=== PATIENT | male | born 1950 | race Hispanic/Latino ===

== ENCOUNTER 2017-12-25 01:44 | Emergency (ER) | payer OTHER, SELFPAY ==
[~2017-12-25 01:44] MED LIST: AUGMENTIN PO; FINASTERIDE PO; INSLAN SQ; PHEN-776 PO; RAPAFLO PO
[2017-12-25] MEDS ORDERED: DiphenhydrAMINE HCL 50 MG/ML VIAL ONE (02:14)
[2017-12-25] MEDS ORDERED: DIAZEPAM 5 MG TABLET ONE (02:15)
[2017-12-25 02:16] LABS: APPEARANCE,URINE Turbid (CLEAR); BILIRUBIN,URINE Negative (NEGATIVE); COLOR,URINE Yellow (YELLOW); GLUCOSE, URINE (UA) >=1000 mg/dL (NEGATIVE); KETONES,URINE Negative (NEGATIVE); LEUKOCYTE ESTERASE ,URINE Large (NEGATIVE); NITRATE,URINE Negative (NEGATIVE); OCCULT BLOOD,URINE Small (NEGATIVE); PH,URINE 5.5 (5.0-8.0); PROTEIN,URINE Negative (NEGATIVE); UROBILINOGEN,URINE 0.2 mg/dL (0.2-1.0)
[2017-12-25 02:25] LABS: BASOPHILS % (AUTO) 0.3 % (0.0-5.0); EOSINOPHILS % (AUTO) 0.9 % (0.0-8.0); LYMPHOCYTES % (AUTO) 11.6 % (21.0-51.0); MEAN CORPUSCULAR HEMOGLOBIN 29.5 pg (27.0-33.0); MEAN CORPUSCULAR HGB CONC 33.7 g/dL (32.0-36.0); MEAN CORPUSCULAR VOLUME 87.4 fL (79-99); MONOCYTES % (AUTO) 10.4 % (3.0-13.0); NEUTROPHILS % (AUTO) 76.8 % (40.0-77.0); PLATELET COUNT (AUTO) 181 K/uL (130-400); RED BLOOD CELL COUNT(AUTO) 4.24 MIL/uL (4.50-6.20); RED CELL DISTRIBUTION WIDTH 13.7 % (11.0-15.5); WHITE BLOOD COUNT (AUTO) 8.7 K/uL (4.8-10.8)
[2017-12-25 02:39] LABS: BACTERIA,URINE Many /HPF (None Seen); MUCUS,URINE Rare LPF (None Seen); RBC,URINE 0-1 /HPF (0-1); SQUAMOUS EPITHELIAL CELL,UR Rare /HPF (0-2); WBC,URINE TNTC /HPF (0-1); YEAST,URINE BUDDING Moderate /HPF (None Seen)
[2017-12-25 02:40] LABS: POTASSIUM 4.3 mmol/L (3.5-5.1)
[2017-12-25 02:45] LABS: ALBUMIN 3.3 g/dL (3.5-5.0); BILIRUBIN,TOTAL 0.3 mg/dL (0.2-1.0); TOTAL PROTEIN, SERUM 8.5 g/dL (6.0-8.3)
[2017-12-25] MEDS ORDERED: CEFTRIAXONE SODIUM 1 GM ONE (02:54)
[2017-12-25 02:55] LABS: AMPHET/METH SCREEN,URINE NEGATIVE (NEGATIVE); BARBITURATE SCREEN, URINE NEGATIVE (NEGATIVE); BENZODIAZEPINES SCREEN,URINE NEGATIVE (NEGATIVE); CANNABINOID SCREEN,URINE NEGATIVE (NEGATIVE); COCAINE SCREEN,URINE NEGATIVE (NEGATIVE); OPIATE SCREEN,URINE NEGATIVE (NEGATIVE); PHENCYCLIDINE SCREEN,URINE NEGATIVE (NEGATIVE)
[2017-12-25] MEDS ORDERED: HALOPERIDOL LACTATE 5 MG/ML VIAL ONE (03:03)
== END 2017-12-25 06:16 | disposition home or self-care (01) ==
LOC: EDH 01:44
DX: F41.9 Anxiety disorder, unspecified (principal); N39.0 Urinary tract infection, site not specified; E11.9 Type 2 diabetes mellitus without complications
CPT/HCPCS: 36415; 80053; 80305; 81001; 82948; 84484; 85025; 87088; 87186; 93005; 96374; 96375; 99285; J0696; J1200; J1630

== ENCOUNTER 2017-12-27 13:23 | Inpatient (IN) | payer OTHER ==
[~2017-12-27] VITALS: Ht 172.7 cm; Wt 73.6 kg
[2017-12-27 13:52] LABS: APPEARANCE,URINE Turbid (CLEAR); BILIRUBIN,URINE Negative (NEGATIVE); COLOR,URINE Yellow (YELLOW); GLUCOSE, URINE (UA) 500 mg/dL (NEGATIVE); KETONES,URINE Negative (NEGATIVE); LEUKOCYTE ESTERASE ,URINE Large (NEGATIVE); NITRATE,URINE Negative (NEGATIVE); OCCULT BLOOD,URINE Moderate (NEGATIVE); PROTEIN,URINE POS 1+ (NEGATIVE); UROBILINOGEN,URINE 0.2 mg/dL (0.2-1.0)
[2017-12-27 14:04] LABS: BACTERIA,URINE Many /HPF (None Seen); SQUAMOUS EPITHELIAL CELL,UR Few /HPF (0-2); WBC,URINE TNTC /HPF (0-1); YEAST,URINE BUDDING Few /HPF (None Seen)
[2017-12-27] MEDS ORDERED: MEROPENEM 1 GM VIAL ONE (14:05)
[2017-12-27 14:13] LABS: BASOPHILS % (AUTO) 0.9 % (0.0-5.0); EOSINOPHILS % (AUTO) 1.1 % (0.0-8.0); HEMATOCRIT 33.1 % (42-54); LYMPHOCYTES % (AUTO) 20.5 % (21.0-51.0); MEAN CORPUSCULAR HEMOGLOBIN 29.7 pg (27.0-33.0); MEAN CORPUSCULAR HGB CONC 33.9 g/dL (32.0-36.0); MEAN CORPUSCULAR VOLUME 87.8 fL (79-99); MONOCYTES % (AUTO) 6.6 % (3.0-13.0); NEUTROPHILS % (AUTO) 70.9 % (40.0-77.0); PLATELET COUNT (AUTO) 191 K/uL (130-400); RED BLOOD CELL COUNT(AUTO) 3.77 MIL/uL (4.50-6.20); RED CELL DISTRIBUTION WIDTH 13.7 % (11.0-15.5); WHITE BLOOD COUNT (AUTO) 6.9 K/uL (4.8-10.8)
[2017-12-27 14:21] LABS: POTASSIUM 4.3 mmol/L (3.5-5.1)
[2017-12-27 14:26] LABS: ALBUMIN 3.1 g/dL (3.5-5.0); BILIRUBIN,TOTAL 0.2 mg/dL (0.2-1.0); TOTAL PROTEIN, SERUM 7.3 g/dL (6.0-8.3)
[2017-12-27] MEDS ORDERED: ENOXAPARIN SODIUM 40 MG/0.4 ML SYRINGE SQ SCH (20:15)
[2017-12-27] MEDS ORDERED: ACETAMINOPHEN 325 MG TAB PO PRN (20:15)
[2017-12-27] MEDS ORDERED: FAMOTIDINE 20MG TAB 20 MG TAB PO SCH (20:15)
[2017-12-27] MEDS ORDERED: HYDRALAZINE HCL 20 MG/ML VIAL IM PRN (20:15)
[2017-12-27] MEDS ORDERED: GLUCAGON 1MG KIT 1 MG ML IM PRN (20:15)
[2017-12-27] MEDS ORDERED: DEXTROSE 50%-WATER 50 ML DISP.SYRIN IV PRN (20:15)
[2017-12-27] MEDS ORDERED: FAMOTIDINE 20MG TAB 20 MG TAB ONE (20:52)
[2017-12-27] MEDS ORDERED: ENOXAPARIN SODIUM 40 MG/0.4 ML SYRINGE SQ ONE (20:53)
[2017-12-27] MEDS: INSULIN HUMULIN R 100 UNIT/ML 3ML SQ SCH (21:00)
[2017-12-27] MEDS ORDERED: INSULIN HUMULIN R 100 UNIT/ML 3ML ONE (21:10)
[2017-12-27] MEDS ORDERED: SODIUM CHLORIDE 0.9% 1000ML 1,000 ML IV ONE (21:21)
[2017-12-27] MEDS: MEROPENEM 1 GM VIAL IVP SCH (22:00)
[2017-12-27 23:41] VITALS: BP 136/81
[2017-12-28] MEDS ORDERED: CHOL400C9 PO (00:39)
[2017-12-28] MEDS ORDERED: DOCU100C33 PO (00:39)
[2017-12-28] MEDS ORDERED: SIMV40TA59 PO (00:39)
[2017-12-28] MEDS ORDERED: METF500T6 PO (00:39)
[2017-12-28] MEDS ORDERED: INSLAN SQ ×2 (00:39)
[2017-12-28] MEDS ORDERED: TAMS0.4C32 PO (00:39)
[2017-12-28] MEDS ORDERED: LISI10TA7 PO (00:39)
[2017-12-28] MEDS ORDERED: SODIUM CHLORIDE 0.9% 1000ML 1,000 ML IV ONE (01:58)
[2017-12-28] MEDS ORDERED: ONDANSETRON HCL MDV 20ML 2 MG/ML VIAL IVP PRN (02:15)
[2017-12-28] MEDS ORDERED: POTASSIUM CHLORIDE 20 MEQ ERTAB PO PRN (02:15)
[2017-12-28] MEDS ORDERED: GLUCAGON 1MG KIT 1 MG ML IM PRN (02:15)
[2017-12-28] MEDS ORDERED: POTASSIUM CHLORIDE 20MEQ/100ML 100 ML IV PRN (02:15)
[2017-12-28] MEDS ORDERED: SODIUM CHLORIDE 0.9% 1000ML 1,000 ML IV SCH (02:15)
[2017-12-28] MEDS ORDERED: LORAZEPAM 0.5 MG TABLET PO PRN (02:15)
[2017-12-28] MEDS ORDERED: DEXTROSE 50%-WATER 50 ML DISP.SYRIN IV PRN (02:15)
[2017-12-28] MEDS ORDERED: POTASSIUM CHLORIDE 10% ELIXIR 20 MEQ/15 ML UDCUP PO PRN (02:15)
[2017-12-28] MEDS ORDERED: LIDOCAINE HCL-MPF 1% 2ML VIAL IJ PRN (02:15)
[2017-12-28] MEDS ORDERED: LORAZEPAM 0.5 MG TABLET ONE (02:18)
[2017-12-28 03:00] VITALS: BP 138/73
[2017-12-28] MEDS: MEROPENEM 1 GM VIAL IVP SCH ×3 (05:34→21:45)
[2017-12-28] MEDS: INSULIN HUMULIN R 100 UNIT/ML 3ML SQ SCH ×4 (05:34→21:40)
[2017-12-28 06:24] LABS: HEMATOCRIT 31.8 % (42-54); MEAN CORPUSCULAR HGB CONC 35.4 g/dL (32.0-36.0); MEAN CORPUSCULAR VOLUME 87.6 fL (79-99); PLATELET COUNT (AUTO) 190 K/uL (130-400); RED BLOOD CELL COUNT(AUTO) 3.63 MIL/uL (4.50-6.20); RED CELL DISTRIBUTION WIDTH 14.1 % (11.0-15.5); WHITE BLOOD COUNT (AUTO) 10.9 K/uL (4.8-10.8)
[2017-12-28 06:39] LABS: CREATININE 0.9 mg/dL (0.5-1.5); POTASSIUM 4.1 mmol/L (3.5-5.1)
[2017-12-28] MEDS: INSULIN GLARGINE 100 UNITS/ML 10 ML VIAL SQ SCH (07:30)
[2017-12-28 08:00] VITALS: BP 142/65
[2017-12-28] MEDS ORDERED: INSULIN GLARGINE 100 UNITS/ML 10 ML VIAL SQ SCH ×2 (09:00→21:00)
[2017-12-28] MEDS: **HM** VIT D3 400 UNITS PO SCH (09:00)
[2017-12-28] MEDS: DOCUSATE SODIUM 100 MG CAP PO SCH ×2 (09:11→21:32)
[2017-12-28] MEDS: METFORMIN HCL 500 MG TABLET PO SCH ×2 (09:12→19:34)
[2017-12-28] MEDS: LISINOPRIL 10 MG TABLET PO SCH (09:12)
[2017-12-28] MEDS: TAMSULOSIN HCL 0.4 MG CAP.ER.24H PO SCH (09:12)
[2017-12-28] MEDS: ENOXAPARIN SODIUM 40 MG/0.4 ML SYRINGE SQ SCH (09:13)
[2017-12-28 11:00] VITALS: BP 138/58
[2017-12-28 16:00] VITALS: BP 130/85
[2017-12-28 16:19] LABS: INR 1.09 (0.85-1.15); PROTHROMBIN TIME 11.4 SEC (9.6-11.6)
[2017-12-28 19:05] VITALS: BP 152/71
[2017-12-28] MEDS ORDERED: ATORVASTATIN CALCIUM 20 MG TABLET PO SCH (21:00)
[2017-12-28] MEDS ORDERED: ALPRAZOLAM 0.25 MG TABLET PO PRN (22:30)
[2017-12-28] MEDS ORDERED: ALPRAZOLAM 0.25 MG TABLET ONE (22:59)
[2017-12-29 00:05] VITALS: BP 154/83
[2017-12-29 04:10] VITALS: BP 158/95
[2017-12-29] MEDS: MEROPENEM 1 GM VIAL IVP SCH (05:29)
[2017-12-29] MEDS: INSULIN HUMULIN R 100 UNIT/ML 3ML SQ SCH ×2 (06:07→12:14)
[2017-12-29] MEDS: INSULIN GLARGINE 100 UNITS/ML 10 ML VIAL SQ SCH (06:14)
[2017-12-29 08:00] VITALS: BP 148/98
[2017-12-29] MEDS: TAMSULOSIN HCL 0.4 MG CAP.ER.24H PO SCH (08:27)
[2017-12-29] MEDS: METFORMIN HCL 500 MG TABLET PO SCH (08:27)
[2017-12-29] MEDS: LISINOPRIL 10 MG TABLET PO SCH (08:27)
[2017-12-29] MEDS: DOCUSATE SODIUM 100 MG CAP PO SCH (08:27)
[2017-12-29] MEDS: **HM** VIT D3 400 UNITS PO SCH (08:28)
[2017-12-29] MEDS: ENOXAPARIN SODIUM 40 MG/0.4 ML SYRINGE SQ SCH (08:28)
[2017-12-29 11:29] VITALS: BP 154/90
== END 2017-12-29 13:53 | disposition home or self-care (01) | DRG 690 ==
LOC: EDH 13:23 → EDHIP 16:50 → 3BH 22:03
PROVIDERS: ADMIT Family Medicine; ATTEND Family Medicine
PROC: 02HV33Z Insertion of Infusion Device into Superior Vena Cava, Percutaneous Approach (ICD-10-PCS; principal; 2017-12-29)
DX: N39.0 Urinary tract infection, site not specified (principal); B96.20 Unspecified Escherichia coli [E. coli] as the cause of diseases classified elsewhere; E11.9 Type 2 diabetes mellitus without complications; E78.5 Hyperlipidemia, unspecified; F41.1 Generalized anxiety disorder; I10 Essential (primary) hypertension; N40.0 Benign prostatic hyperplasia without lower urinary tract symptoms; Z16.24 Resistance to multiple antibiotics; Z83.3 Family history of diabetes mellitus; Z79.84 Long term (current) use of oral hypoglycemic drugs; Z28.21 Immunization not carried out because of patient refusal
CPT/HCPCS: 36415; 71045; 80048; 80053; 80305; 81001; 82948; 83605; 84484; 85025; 85027; 85610; 87040; 87088; 87186; 93005; 96374; 96375; A4218; C1894; J0696; J1200; J1630; J1650; J1815; J2185; J7030

== ENCOUNTER → 2018-06-15 | Outpatient (CLI) | payer OTHER ==
[~2018-06-15] MED LIST changes: -AUGMENTIN PO; +CHOL400C9 PO; +DOCU100C33 PO; -FINASTERIDE PO; +LISI10TA7 PO; +METF-444 PO; -PHEN-776 PO; -RAPAFLO PO; +SIMV40TA59 PO; +TAMS0.4C32 PO
== END | disposition home or self-care (01) ==
LOC: RAH 11:00
PROVIDERS: ATTEND Urology
DX: N13.39 Other hydronephrosis (principal)
CPT/HCPCS: 76770

== ENCOUNTER 2022-04-18 18:27 | Emergency (ER) | payer OTHER ==
[~2022-04-18] VITALS: Ht 172.7 cm; Wt 68.0 kg
[~2022-04-18 18:27] MED LIST changes: +LISI10TA24 PO; -LISI10TA7 PO
[2022-04-18 18:57] LABS: BASOPHILS % (AUTO) 0.4 % (0.0-5.0); EOSINOPHILS % (AUTO) 1.6 % (0.0-8.0); HEMATOCRIT 36.7 % (42-54); LYMPHOCYTES % (AUTO) 20.2 % (21.0-51.0); MEAN CORPUSCULAR HEMOGLOBIN 31.9 pg (27.0-33.0); MEAN CORPUSCULAR HGB CONC 35.4 g/dL (32.0-36.0); MEAN CORPUSCULAR VOLUME 90.2 fL (79-99); MONOCYTES % (AUTO) 7.2 % (3.0-13.0); NEUTROPHILS % (AUTO) 70.2 % (40.0-77.0); PLATELET COUNT (AUTO) 178 K/uL (130-400); RED BLOOD CELL COUNT(AUTO) 4.07 MIL/uL (4.50-6.20); RED CELL DISTRIBUTION WIDTH 12.4 % (11.0-15.5); WHITE BLOOD COUNT (AUTO) 10.5 K/uL (4.8-10.8)
[2022-04-18 19:08] LABS: CREATININE 1.3 mg/dL (0.5-1.5); POTASSIUM 4.5 mmol/L (3.5-5.1)
[2022-04-18 19:15] LABS: ALBUMIN 3.9 g/dL (3.5-5.0); TOTAL PROTEIN, SERUM 7.5 g/dL (6.0-8.3)
[2022-04-18 19:33] LABS: BILIRUBIN,URINE NEGATIVE (NEGATIVE); COLOR,URINE YELLOW (YELLOW); GLUCOSE, URINE (UA) >=1000 mg/dL (NEGATIVE); KETONES,URINE 15 mg/dL (NEGATIVE); LEUKOCYTE ESTERASE ,URINE MODERATE (NEGATIVE); NITRATE,URINE POSITIVE (NEGATIVE); OCCULT BLOOD,URINE SMALL (NEGATIVE); PH,URINE 5.5 (5.0-8.0); PROTEIN,URINE 100 mg/dL (NEGATIVE); UROBILINOGEN,URINE 0.2 mg/dL (0.2-1.0)
[2022-04-18 19:35] LABS: APPEARANCE,URINE CLOUDY (CLEAR)
[2022-04-18 19:43] LABS: BACTERIA,URINE Many /HPF (None Seen); RBC,URINE None Seen /HPF (0-1); SQUAMOUS EPITHELIAL CELL,UR 0-2 /HPF (0-2); WBC,URINE 51-100 /HPF (0-1)
[2022-04-18] MEDS: 0.9%NACL 1000ML 1,000 ML IV ONE (20:01)
[2022-04-18] MEDS ORDERED: CEFD300C3 PO (20:02)
[2022-04-18] MEDS: CEFTRIAXONE 1G VIAL IVP ONE (20:08)
[2022-04-18 20:21] VITALS: BP 149/78
== END 2022-04-18 20:40 | disposition home or self-care (01) ==
LOC: EDH 18:27
DX: N39.0 Urinary tract infection, site not specified (principal); E86.0 Dehydration; R42 Dizziness and giddiness; Z20.822 Contact with and (suspected) exposure to COVID-19; E11.9 Type 2 diabetes mellitus without complications
CPT/HCPCS: 99285; 96374; 71045; 87635; 84484; 80053; 83690; 85025; 87077; 87088; 87186; 81001; 36415; 93005; C9803; J7030; J0696

== ENCOUNTER 2023-03-27 09:41 | Inpatient (IN) | payer OTHER ==
[~2023-03-27] VITALS: Ht 167.6 cm; Wt 68.9 kg
[~2023-03-27 09:41] MED LIST changes: +CEFD300C3 PO
[2023-03-27] MEDS ORDERED: 0.9%NACL 1000ML 1,914 ML IV ONE (10:00)
[2023-03-27 10:30] LABS: BASOPHILS % (AUTO) 0.1 % (0.0-5.0); HEMATOCRIT 38.4 % (42-54); LYMPHOCYTES % (AUTO) 2.7 % (21.0-51.0); MEAN CORPUSCULAR HEMOGLOBIN 33.3 pg (27.0-33.0); MEAN CORPUSCULAR HGB CONC 35.4 g/dL (32.0-36.0); MEAN CORPUSCULAR VOLUME 93.9 fL (79-99); MONOCYTES % (AUTO) 7.8 % (3.0-13.0); NEUTROPHILS % (AUTO) 87.9 % (40.0-77.0); PLATELET COUNT (AUTO) 168 K/uL (130-400); RED BLOOD CELL COUNT(AUTO) 4.09 MIL/uL (4.50-6.20); WHITE BLOOD COUNT (AUTO) 22.7 K/uL (4.8-10.8)
[2023-03-27 10:31] LABS: APPEARANCE,URINE TURBID (CLEAR); BILIRUBIN,URINE NEGATIVE (NEGATIVE); COLOR,URINE LIGHT-ORANGE (YELLOW); GLUCOSE, URINE (UA) 500 mg/dL (NEGATIVE); KETONES,URINE NEGATIVE (NEGATIVE); LEUKOCYTE ESTERASE ,URINE 500 Leu/uL (NEGATIVE); NITRATE,URINE NEGATIVE (NEGATIVE); OCCULT BLOOD,URINE MODERATE (NEGATIVE); PH,URINE 5.5 (5.0-8.0); PROTEIN,URINE 100 mg/dL (NEGATIVE); UROBILINOGEN,URINE 0.2 mg/dL (0.2-1.0)
[2023-03-27 10:35] LABS: BACTERIA,URINE RARE /HPF (None Seen); MUCUS,URINE RARE LPF (None Seen); RBC,URINE 26-50 /HPF (0-1); SQUAMOUS EPITHELIAL CELL,UR MANY /HPF (0-2); WBC,URINE TNTC /HPF (0-1); YEAST,URINE BUDDING MANY /HPF (None Seen)
[2023-03-27 10:45] LABS: POTASSIUM 4.1 mmol/L (3.5-5.1)
[2023-03-27 10:49] LABS: ALBUMIN 2.8 g/dL (3.5-5.0); TOTAL PROTEIN, SERUM 6.9 g/dL (6.0-8.3)
[2023-03-27 10:52] LABS: B-TYPE NATRIURETIC PEPTIDE 72 pg/mL (0-100)
[2023-03-27] MEDS ORDERED: ZOSYN 3.375GM +NS 50ML IVPB ONE (11:00)
[2023-03-27] MEDS ORDERED: ONDANSETRON 4MG INJ IVP ONE (12:30)
[2023-03-27] MEDS: MAGNESIUM 2GM PREMIX 50ML 50 ML IV SCH (12:30)
[2023-03-27] MEDS ORDERED: MORPHINE 4 MG SYG IVP ONE (12:30)
[2023-03-27] MEDS ORDERED: PANT20TA18 PO (14:58)
[2023-03-27] MEDS ORDERED: TRAZ-187 PO (14:58)
[2023-03-27] MEDS ORDERED: ONDA4TAB10 PO (14:58)
[2023-03-27] MEDS ORDERED: CARV12.511 PO (14:58)
[2023-03-27] MEDS ORDERED: BENZOCAINE/MENTH/CETYLPYRD CL 1 EACH LOZENGE MM PRN (15:00)
[2023-03-27] MEDS ORDERED: ZOLPIDEM TARTRATE 5 MG TAB PO PRN (15:00)
[2023-03-27] MEDS ORDERED: LIDOCAINE HCL 2% VISCOUS 30 ML, MAG/ALUM/SIMETH 30ML 30 ML, DICYCLOMINE HCL 20 MG PO PRN ×3 (15:00)
[2023-03-27] MEDS ORDERED: ALPRAZOLAM 0.5 MG TABLET PO PRN (15:00)
[2023-03-27] MEDS ORDERED: HYDRALAZINE 25MG TABLET PO PRN (15:00)
[2023-03-27] MEDS ORDERED: POLYETHYLENE GLYCOL 3350 17 GM POWD.PACK PO PRN (15:00)
[2023-03-27] MEDS ORDERED: DOCUSATE SODIUM 100 MG CAP PO PRN (15:00)
[2023-03-27] MEDS ORDERED: GUAIFENESIN SUGAR-FREE 100 MG/5 ML UDCUP PO PRN (15:00)
[2023-03-27] MEDS ORDERED: LACTULOSE 20 GM/30 ML UDCUP PO PRN (15:00)
[2023-03-27] MEDS ORDERED: GLUCAGON 1MG KIT 1 MG ML IM PRN (15:00)
[2023-03-27] MEDS ORDERED: LOPERAMIDE HCL 2 MG CAP PO PRN (15:00)
[2023-03-27] MEDS ORDERED: GUAIFENESIN-DM 200/20 MG 10 ML PO PRN (15:00)
[2023-03-27] MEDS ORDERED: ACETAMINOPHEN 325 MG TAB PO PRN ×2 (15:00)
[2023-03-27] MEDS ORDERED: KCL 20 MEQ ERTAB PO PRN (15:00)
[2023-03-27] MEDS: ZOSYN 3.375GM +NS 50ML IVPB SCH ×2 (15:00→23:51)
[2023-03-27] MEDS ORDERED: NITROGLYCERIN 0.4 MG SL TAB SL PRN (15:00)
[2023-03-27] MEDS ORDERED: ARTIFICAL TEARS SOL 15 ML OP PRN (15:00)
[2023-03-27] MEDS ORDERED: DEXTROSE 50%-WATER 50 ML DISP.SYRIN IV PRN (15:00)
[2023-03-27] MEDS ORDERED: 0.9%NACL 50ML IV SCH (15:00)
[2023-03-27] MEDS ORDERED: POTASSIUM CHLORIDE 20MEQ/100ML 100 ML IV PRN (15:00)
[2023-03-27] MEDS: 0.9%NACL 1000ML 1,000 ML IV SCH (15:08)
[2023-03-27] MEDS: INSULIN HUMULIN R 100 UNIT/ML 3ML SQ SCH ×2 (16:00→20:48)
[2023-03-27 17:48] LABS: AMPHET/METH SCREEN,URINE NEGATIVE (NEGATIVE); BARBITURATE SCREEN, URINE NEGATIVE (NEGATIVE); BENZODIAZEPINES SCREEN,URINE NEGATIVE (NEGATIVE); CANNABINOID SCREEN,URINE NEGATIVE (NEGATIVE); COCAINE SCREEN,URINE POSITIVE (NEGATIVE); OPIATE SCREEN,URINE NEGATIVE (NEGATIVE); PHENCYCLIDINE SCREEN,URINE NEGATIVE (NEGATIVE)
[2023-03-27 21:15] VITALS: BP 164/90; PULSE 121; RESP 20
[2023-03-27 23:43] VITALS: BP 154/91; PULSE 111; RESP 18
[2023-03-28] VITALS (7 sets, daily range): BP systolic 116–169; BP diastolic 70–103; PULSE 99–121; RESP 18–20; TEMP 99.3; O2SAT 96–97
[2023-03-28] MEDS: HYDROMORPHONE 0.5 MG SYG (0.5MG/0.5ML) IVP PRN ×2 (03:10→21:03)
[2023-03-28 06:12] LABS: BASOPHILS % (AUTO) 0.1 % (0.0-5.0); HEMATOCRIT 34.6 % (42-54); LYMPHOCYTES % (AUTO) 3.3 % (21.0-51.0); MEAN CORPUSCULAR HEMOGLOBIN 32.7 pg (27.0-33.0); MEAN CORPUSCULAR VOLUME 93.5 fL (79-99); MONOCYTES % (AUTO) 7.6 % (3.0-13.0); NEUTROPHILS % (AUTO) 85.2 % (40.0-77.0); PLATELET COUNT (AUTO) 152 K/uL (130-400); RED CELL DISTRIBUTION WIDTH 12.2 % (11.0-15.5); WHITE BLOOD COUNT (AUTO) 17.7 K/uL (4.8-10.8)
[2023-03-28 06:28] LABS: ALBUMIN 2.1 g/dL (3.5-5.0); CREATININE 0.7 mg/dL (0.5-1.5); MAGNESIUM 1.7 mg/dL (1.80-2.40); PHOSPHORUS 2.3 mg/dL (2.5-4.9); POTASSIUM 3.3 mmol/L (3.5-5.1); TOTAL PROTEIN, SERUM 5.8 g/dL (6.0-8.3)
[2023-03-28] MEDS: ZOSYN 3.375GM +NS 50ML IVPB SCH ×3 (06:39→23:36)
[2023-03-28] MEDS: INSULIN HUMULIN R 100 UNIT/ML 3ML SQ SCH ×4 (07:19→21:00)
[2023-03-28] MEDS: MAG/ALUM/SIMETH 30 ML UDCUP PO PRN ×2 (08:20→15:40)
[2023-03-28] MEDS: 0.9%NACL 1000ML 1,000 ML IV SCH ×2 (08:23→17:40)
[2023-03-28] MEDS: MAGNESIUM 2GM PREMIX 50ML 50 ML IV SCH (09:35)
[2023-03-28] MEDS: PANTOPRAZOLE 40 MG TAB DR PO SCH (15:39)
[2023-03-29] VITALS (23 sets, daily range): BP systolic 110–158; BP diastolic 58–92; PULSE 62–120; RESP 18–22; O2SAT 95–97
[2023-03-29] MEDS: KETOROLAC 15MG/ML VIAL (15MG/ML) IV PRN (00:47)
[2023-03-29 05:46] LABS: HEMATOCRIT 31.9 % (42-54); MEAN CORPUSCULAR HEMOGLOBIN 32.7 pg (27.0-33.0); MEAN CORPUSCULAR HGB CONC 35.1 g/dL (32.0-36.0); MEAN CORPUSCULAR VOLUME 93.3 fL (79-99); RED BLOOD CELL COUNT(AUTO) 3.42 MIL/uL (4.50-6.20); RED CELL DISTRIBUTION WIDTH 12.3 % (11.0-15.5); WHITE BLOOD COUNT (AUTO) 12.6 K/uL (4.8-10.8)
[2023-03-29 06:04] LABS: ALBUMIN 1.8 g/dL (3.5-5.0); CREATININE 0.8 mg/dL (0.5-1.5); PHOSPHORUS 1.6 mg/dL (2.5-4.9); POTASSIUM 3.2 mmol/L (3.5-5.1); TOTAL PROTEIN, SERUM 5.4 g/dL (6.0-8.3)
[2023-03-29] MEDS: 0.9%NACL 1000ML 1,000 ML IV SCH (07:00)
[2023-03-29] MEDS: INSULIN HUMULIN R 100 UNIT/ML 3ML SQ SCH ×4 (07:30→21:00)
[2023-03-29] MEDS: ZOSYN 3.375GM +NS 50ML IVPB SCH ×2 (07:55→16:22)
[2023-03-29] MEDS: PANTOPRAZOLE 40 MG TAB DR PO SCH (07:59)
[2023-03-29] MEDS ORDERED: ENOXAPARIN SODIUM 40 MG/0.4 ML SYRINGE SQ SCH (09:00)
[2023-03-29] MEDS: ONDANSETRON 4MG INJ IV PRN (09:01)
[2023-03-29] MEDS ORDERED: BUPIVACAINE/PF 0.25% 30ML VIAL IJ ONE (13:19)
[2023-03-29 13:21] LABS: INR 0.98 (0.85-1.15); PROTHROMBIN TIME 11.4 SEC (9.6-11.6)
[2023-03-29] MEDS ORDERED: INDOCYANINE GREEN 25 MG VIAL IJ ONE (13:25)
[2023-03-29] MEDS ORDERED: SUCCINYLCHOLINE 200MG/10ML SYR ONE (13:35)
[2023-03-29] MEDS ORDERED: LIDOCAINE PF 100MG/5ML (2%) SYRINGE 5ML ONE (13:35)
[2023-03-29] MEDS ORDERED: PROPOFOL 10 MG/ML 20ML VIAL IV ONE (13:36)
[2023-03-29] MEDS ORDERED: FENTANYL CITRATE PF 50 MCG/1 ML 2ML VIAL ONE (13:36)
[2023-03-29] MEDS ORDERED: MIDAZOLAM HCL 1 MG/ML 2ML VIAL ONE (13:36)
[2023-03-29] MEDS ORDERED: ROCURONIUM 10MG/1ML SYR 10 MG/ML ML ONE (13:36)
[2023-03-29] MEDS ORDERED: PHENYLEPHRINE HCL 10 MG/ML 1ML VIAL IV ONE (13:51)
[2023-03-29] MEDS ORDERED: ALBUMIN (HUMAN) 5% 250 ML IV ONE (14:38)
[2023-03-29 14:54] LABS: ABG BASE EXCESS -3.3 mmol/L (-2.0-3.0); ABG HCO3 23.6 mmol/L (21.0-28.0); ABG OXYGEN SATURATION 99.8 % (95.0-99.0); ABG PCO2 50 mmHg (35-48)
[2023-03-29] MEDS ORDERED: SUGAMMADEX SODIUM 200 MG/2 ML VIAL IV ONE (15:08)
[2023-03-29] MEDS ORDERED: NOREPINEPHRINE BITARTRATE 1 MG/1 ML ML IV ONE ×2 (15:09)
[2023-03-29] MEDS ORDERED: POTASSIUM PHOS 15 mMOL+NS250ML 250 ML IV PRN (15:30)
[2023-03-29] MEDS ORDERED: MEPERIDINE-PF 25 MG/ML SYG ONE ×2 (16:01→16:12)
[2023-03-29] MEDS: HYDROMORPHONE 0.5 MG SYG (0.5MG/0.5ML) IVP PRN (21:36)
[2023-03-30] MEDS: KETOROLAC 15MG/ML VIAL (15MG/ML) IV PRN ×2 (00:47→16:23)
[2023-03-30] MEDS: 0.9%NACL 1000ML 1,000 ML IV SCH ×3 (00:47→23:10)
[2023-03-30] MEDS: ZOSYN 3.375GM +NS 50ML IVPB SCH ×4 (01:00→23:09)
[2023-03-30 03:15] LABS: ABG BASE EXCESS -4.3 mmol/L (-2.0-3.0); ABG HCO3 19.6 mmol/L (21.0-28.0); ABG OXYGEN SATURATION 94.1 % (95.0-99.0); ABG PCO2 33 mmHg (35-48)
[2023-03-30 03:30] VITALS: BP 143/94; PULSE 94; RESP 19
[2023-03-30 06:40] LABS: BASOPHILS % (AUTO) 0.2 % (0.0-5.0); HEMATOCRIT 31.7 % (42-54); LYMPHOCYTES % (AUTO) 6.5 % (21.0-51.0); MEAN CORPUSCULAR HEMOGLOBIN 32.4 pg (27.0-33.0); MEAN CORPUSCULAR HGB CONC 34.4 g/dL (32.0-36.0); MEAN CORPUSCULAR VOLUME 94.3 fL (79-99); MONOCYTES % (AUTO) 10.8 % (3.0-13.0); NEUTROPHILS % (AUTO) 81.1 % (40.0-77.0); PLATELET COUNT (AUTO) 101 K/uL (130-400); RED BLOOD CELL COUNT(AUTO) 3.36 MIL/uL (4.50-6.20); RED CELL DISTRIBUTION WIDTH 12.8 % (11.0-15.5); WHITE BLOOD COUNT (AUTO) 6.5 K/uL (4.8-10.8)
[2023-03-30 06:54] LABS: ALBUMIN 1.8 g/dL (3.5-5.0); CREATININE 0.7 mg/dL (0.5-1.5); MAGNESIUM 1.9 mg/dL (1.80-2.40); PHOSPHORUS 2.3 mg/dL (2.5-4.9); TOTAL PROTEIN, SERUM 5.3 g/dL (6.0-8.3)
[2023-03-30 07:17] LABS: POTASSIUM 2.8 mmol/L (3.5-5.1)
[2023-03-30] MEDS: POTASSIUM CHLORIDE 10% ELIXIR 20 MEQ/15 ML UDCUP PO PRN ×4 (07:23→13:40)
[2023-03-30] MEDS: INSULIN HUMULIN R 100 UNIT/ML 3ML SQ SCH ×3 (07:30→16:25)
[2023-03-30 08:00] VITALS: BP 125/63; PULSE 78; RESP 20; O2SAT 98
[2023-03-30] MEDS: PANTOPRAZOLE 40 MG TAB DR PO SCH (09:17)
[2023-03-30 12:00] VITALS: BP 136/84; PULSE 92; RESP 20
[2023-03-30 16:00] VITALS: BP 160/97; PULSE 67; RESP 20
[2023-03-30] MEDS: MAGNESIUM 2GM PREMIX 50ML 50 ML IV PRN (16:19)
[2023-03-30 20:00] VITALS: BP 140/84; PULSE 100; RESP 22; O2SAT 99
[2023-03-30] MEDS: HYDROMORPHONE 0.5 MG SYG (0.5MG/0.5ML) IVP PRN (20:53)
[2023-03-30] MEDS: MAG/ALUM/SIMETH 30 ML UDCUP PO PRN (20:53)
[2023-03-31] VITALS (8 sets, daily range): BP systolic 121–172; BP diastolic 64–94; PULSE 66–95; RESP 19–22; O2SAT 96–99
[2023-03-31] MEDS: INSULIN HUMULIN R 100 UNIT/ML 3ML SQ SCH ×5 (01:07→21:09)
[2023-03-31] MEDS: HYDROMORPHONE 0.5 MG SYG (0.5MG/0.5ML) IVP PRN ×2 (02:41→21:08)
[2023-03-31 04:40] LABS: BASOPHILS % (AUTO) 0.2 % (0.0-5.0); EOSINOPHILS % (AUTO) 0.2 % (0.0-8.0); HEMATOCRIT 29.7 % (42-54); LYMPHOCYTES % (AUTO) 8.4 % (21.0-51.0); MEAN CORPUSCULAR HEMOGLOBIN 32.2 pg (27.0-33.0); MEAN CORPUSCULAR HGB CONC 34.3 g/dL (32.0-36.0); MEAN CORPUSCULAR VOLUME 93.7 fL (79-99); MONOCYTES % (AUTO) 9.4 % (3.0-13.0); NEUTROPHILS % (AUTO) 80.8 % (40.0-77.0); PLATELET COUNT (AUTO) 88 K/uL (130-400); RED BLOOD CELL COUNT(AUTO) 3.17 MIL/uL (4.50-6.20); RED CELL DISTRIBUTION WIDTH 13.1 % (11.0-15.5)
[2023-03-31 05:13] LABS: ALBUMIN 1.6 g/dL (3.5-5.0); BILIRUBIN,DIRECT 0.2 mg/dL (0.0-0.3); CREATININE 0.8 mg/dL (0.5-1.5); MAGNESIUM 1.8 mg/dL (1.80-2.40); POTASSIUM 3.5 mmol/L (3.5-5.1); TOTAL PROTEIN, SERUM 5.1 g/dL (6.0-8.3)
[2023-03-31] MEDS: POTASSIUM CHLORIDE 10% ELIXIR 20 MEQ/15 ML UDCUP PO PRN (06:12)
[2023-03-31] MEDS: MAGNESIUM 2GM PREMIX 50ML 50 ML IV PRN (08:39)
[2023-03-31] MEDS: PANTOPRAZOLE 40 MG TAB DR PO SCH (08:39)
[2023-03-31] MEDS: ZOSYN 3.375GM +NS 50ML IVPB SCH ×3 (08:40→22:49)
[2023-03-31] MEDS: KETOROLAC 15MG/ML VIAL (15MG/ML) IV PRN ×3 (08:41→15:15)
[2023-03-31] MEDS: 0.9%NACL 1000ML 1,000 ML IV SCH (11:45)
[2023-03-31] MEDS: MAG/ALUM/SIMETH 30 ML UDCUP PO PRN (22:49)
[2023-04-01] VITALS (8 sets, daily range): BP systolic 115–166; BP diastolic 60–95; PULSE 72–107; RESP 17–18; O2SAT 95–98
[2023-04-01] MEDS: KETOROLAC 15MG/ML VIAL (15MG/ML) IV PRN ×4 (01:21→22:47)
[2023-04-01] MEDS: 0.9%NACL 1000ML 1,000 ML IV SCH ×2 (01:21→15:08)
[2023-04-01] MEDS: INSULIN HUMULIN R 100 UNIT/ML 3ML SQ SCH ×4 (05:07→21:31)
[2023-04-01 05:48] LABS: BASOPHILS % (AUTO) 0.2 % (0.0-5.0); EOSINOPHILS % (AUTO) 0.5 % (0.0-8.0); HEMATOCRIT 31.9 % (42-54); LYMPHOCYTES % (AUTO) 9.3 % (21.0-51.0); MEAN CORPUSCULAR HEMOGLOBIN 32.4 pg (27.0-33.0); MEAN CORPUSCULAR HGB CONC 35.4 g/dL (32.0-36.0); MEAN CORPUSCULAR VOLUME 91.4 fL (79-99); MONOCYTES % (AUTO) 7.3 % (3.0-13.0); NEUTROPHILS % (AUTO) 81.6 % (40.0-77.0); PLATELET COUNT (AUTO) 111 K/uL (130-400); RED BLOOD CELL COUNT(AUTO) 3.49 MIL/uL (4.50-6.20); WHITE BLOOD COUNT (AUTO) 10.1 K/uL (4.8-10.8)
[2023-04-01] MEDS: MAG/ALUM/SIMETH 30 ML UDCUP PO PRN (05:56)
[2023-04-01 05:59] LABS: ALBUMIN 1.6 g/dL (3.5-5.0); CREATININE 0.6 mg/dL (0.5-1.5); MAGNESIUM 1.6 mg/dL (1.80-2.40); POTASSIUM 3.4 mmol/L (3.5-5.1); TOTAL PROTEIN, SERUM 5.2 g/dL (6.0-8.3)
[2023-04-01] MEDS: MAGNESIUM 2GM PREMIX 50ML 50 ML IV PRN (06:35)
[2023-04-01] MEDS: POTASSIUM CHLORIDE 10% ELIXIR 20 MEQ/15 ML UDCUP PO PRN (06:37)
[2023-04-01] MEDS: ZOSYN 3.375GM +NS 50ML IVPB SCH ×2 (08:06→15:08)
[2023-04-01] MEDS: PANTOPRAZOLE 40 MG TAB DR PO SCH (08:07)
[2023-04-01] MEDS ORDERED: MAGNESIUM 2GM PREMIX 50ML 50 ML IV SCH (10:00)
[2023-04-01] MEDS ORDERED: KCL 20 MEQ ERTAB PO ONE (10:00)
[2023-04-01] MEDS: HYDROMORPHONE 0.5 MG SYG (0.5MG/0.5ML) IVP PRN (13:14)
[2023-04-01] MEDS ORDERED: PANT40TA PO (14:17)
[2023-04-01] MEDS: ONDANSETRON 4MG INJ IV PRN (18:38)
[2023-04-02] MEDS: ZOSYN 3.375GM +NS 50ML IVPB SCH ×2 (00:10→05:55)
[2023-04-02] MEDS: 0.9%NACL 1000ML 1,000 ML IV SCH (03:48)
[2023-04-02 04:09] VITALS: BP 149/54; PULSE 81; RESP 18
[2023-04-02 05:03] LABS: BASOPHILS % (AUTO) 0.3 % (0.0-5.0); EOSINOPHILS % (AUTO) 0.7 % (0.0-8.0); HEMATOCRIT 30.1 % (42-54); LYMPHOCYTES % (AUTO) 10.1 % (21.0-51.0); MEAN CORPUSCULAR HGB CONC 35.2 g/dL (32.0-36.0); MEAN CORPUSCULAR VOLUME 90.9 fL (79-99); MONOCYTES % (AUTO) 6.8 % (3.0-13.0); NEUTROPHILS % (AUTO) 80.8 % (40.0-77.0); PLATELET COUNT (AUTO) 107 K/uL (130-400); RED BLOOD CELL COUNT(AUTO) 3.31 MIL/uL (4.50-6.20); RED CELL DISTRIBUTION WIDTH 13.2 % (11.0-15.5)
[2023-04-02 05:17] LABS: ALBUMIN 1.7 g/dL (3.5-5.0); MAGNESIUM 1.7 mg/dL (1.80-2.40); POTASSIUM 3.9 mmol/L (3.5-5.1); TOTAL PROTEIN, SERUM 5.5 g/dL (6.0-8.3)
[2023-04-02] MEDS: INSULIN HUMULIN R 100 UNIT/ML 3ML SQ SCH ×2 (05:56→11:17)
[2023-04-02] MEDS: KETOROLAC 15MG/ML VIAL (15MG/ML) IV PRN (07:57)
[2023-04-02] MEDS: PANTOPRAZOLE 40 MG TAB DR PO SCH (07:57)
[2023-04-02 08:00] VITALS: BP 184/96; PULSE 100; RESP 19; O2SAT 95
[2023-04-02] MEDS ORDERED: AMOX1TAB16 PO (09:25)
[2023-04-02] MEDS ORDERED: MAGNESIUM OXIDE 400 MG TABLET PO ONE (09:30)
[2023-04-02 11:30] VITALS: BP 163/88; PULSE 84; RESP 17
== END 2023-04-02 14:15 | disposition home or self-care (01) | DRG 854 ==
LOC: EDH 09:41 → EDHIP 14:37 → 4CH 21:27
PROVIDERS: ADMIT Internal Medicine Critical Care Medicine; ATTEND Internal Medicine Critical Care Medicine
PROC: 8E0W4CZ Robotic Assisted Procedure of Trunk Region, Percutaneous Endoscopic Approach (ICD-10-PCS; 2023-03-29)
PROC: 0FT44ZZ Resection of Gallbladder, Percutaneous Endoscopic Approach (ICD-10-PCS; principal; 2023-03-29 13:45)
DX: A41.9 Sepsis, unspecified organism (principal); E44.0 Moderate protein-calorie malnutrition; K81.0 Acute cholecystitis; N39.0 Urinary tract infection, site not specified; Z20.822 Contact with and (suspected) exposure to COVID-19; I10 Essential (primary) hypertension; E11.9 Type 2 diabetes mellitus without complications; F17.200 Nicotine dependence, unspecified, uncomplicated; E86.0 Dehydration; K66.0 Peritoneal adhesions (postprocedural) (postinfection); Z87.440 Personal history of urinary (tract) infections; Z68.24 Body mass index [BMI] 24.0-24.9, adult
CPT/HCPCS: 36415; 36600; 71045; 74176; 78226; 80053; 80076; 80305; 81001; 82435; 82550; 82803; 82947; 82948; 83605; 83735; 83880; 84100; 84132; 84145; 84295; 84484; 85018; 85025; 85027; 85610; 87040; 87088; 87635; 93005; A9537; G0378; J0330; J1170; J1815; J1885; J2001; J2175; J2250; J2270; J2371; J2405; J2543; J2704; J3010; J3475; J3480; J3490; J7030; J7040; P9045; A4649; A4930; C1769; G0168

== ENCOUNTER → 2023-07-16 | Outpatient (CLI) | payer OTHER ==
[~2023-07-16] MED LIST changes: +CARV12.511 PO; -CEFD300C3 PO; -CHOL400C9 PO; -DOCU100C33 PO; -INSLAN SQ; -LISI10TA24 PO; +LISI20TA24 PO; -METF-444 PO; +TRAZ-187 PO
== END | disposition home or self-care (01) ==
LOC: RAH 12:30
PROVIDERS: ATTEND Internal Medicine
DX: I25.10 Atherosclerotic heart disease of native coronary artery without angina pectoris (principal); E11.621 Type 2 diabetes mellitus with foot ulcer
CPT/HCPCS: 93925

== ENCOUNTER → 2023-07-17 | Outpatient (CLI) | payer OTHER | END | disposition home or self-care (01) | LOC: RAH 14:30 | PROVIDERS: ATTEND Internal Medicine | DX: K42.9 Umbilical hernia without obstruction or gangrene (principal) | CPT/HCPCS: 76705 ==

== ENCOUNTER 2024-04-01 06:55 | Day surgery (SDC) | payer OTHER ==
[2024-03-28 10:05] VITALS: BP 90/47; PULSE 45; RESP 17
[2024-03-28 10:10] LABS: BASOPHILS # (AUTO) 0.04 K/uL (0.00-0.20); BASOPHILS % (AUTO) 0.5 % (0.0-5.0); EOSINOPHILS # (AUTO) 0.28 K/uL (0.00-0.70); EOSINOPHILS % (AUTO) 3.7 % (0.0-8.0); HEMATOCRIT 37.5 % (42-54); IMMATURE GRANULOCYTE ABSOLUTE 0.03 K/uL (0-1); LYMPHOCYTES # (AUTO) 1.7 K/uL (1.0-4.8); LYMPHOCYTES % (AUTO) 22.2 % (21.0-51.0); MEAN CORPUSCULAR HEMOGLOBIN 32.2 pg (27.0-33.0); MEAN CORPUSCULAR HGB CONC 34.9 g/dL (32.0-36.0); MEAN CORPUSCULAR VOLUME 92.1 fL (79-99); MONOCYTES # (AUTO) 0.6 K/uL (0.1-1.0); MONOCYTES % (AUTO) 7.3 % (3.0-13.0); NEUTROPHILS % (AUTO) 65.9 % (40.0-77.0); PLATELET COUNT (AUTO) 198 K/uL (130-400); RED BLOOD CELL COUNT(AUTO) 4.07 MIL/uL (4.50-6.20); RED CELL DISTRIBUTION WIDTH 12.5 % (11.0-15.5); WHITE BLOOD COUNT (AUTO) 7.7 K/uL (4.8-10.8)
[2024-03-28 10:17] LABS: APPEARANCE,URINE TURBID (CLEAR); BILIRUBIN,URINE NEGATIVE (NEGATIVE); COLOR,URINE LIGHT-ORANGE (YELLOW); GLUCOSE, URINE (UA) 500 mg/dL (NEGATIVE); KETONES,URINE NEGATIVE (NEGATIVE); LEUKOCYTE ESTERASE ,URINE 500 Leu/uL (NEGATIVE); NITRATE,URINE NEGATIVE (NEGATIVE); OCCULT BLOOD,URINE SMALL (NEGATIVE); PROTEIN,URINE 50 mg/dL (NEGATIVE); UROBILINOGEN,URINE 0.2 mg/dL (0.2-1.0)
[2024-03-28 10:18] LABS: CREATININE 1.3 mg/dL (0.5-1.3); POTASSIUM 4.4 mmol/L (3.5-5.1)
[2024-03-28 10:19] LABS: ADD UA MICROSCOPIC YES
[2024-03-28 10:22] LABS: BACTERIA,URINE MANY /HPF (None Seen); OTHER CASTS, URINE 16 /LPF (None Seen); RBC,URINE 26-50 /HPF (0-1); SQUAMOUS EPITHELIAL CELL,UR MANY /HPF (0-2); UNCLASSIFIED CRYSTAL 38 /HPF (None Seen); WBC CLUMP MANY /HPF (0-1); WBC,URINE TNTC /HPF (0-1)
[~2024-04-01] VITALS: Ht 170.2 cm; Wt 72.3 kg
[2024-04-01] VITALS (15 sets, daily range): BP systolic 97–161; BP diastolic 48–88; PULSE 36–85; RESP 14–18
[~2024-04-01 06:55] MED LIST changes: +CITA10TA89 PO; +FURO20TA4 PO; +GLIP10TA9 PO; +METF-444 PO; +PANT40TA54 PO; -TAMS0.4C32 PO
[2024-04-01] MEDS ORDERED: PROPOFOL 10 MG/ML 20ML VIAL IV ONE (09:11)
[2024-04-01] MEDS ORDERED: MIDAZOLAM HCL 1 MG/ML 2ML VIAL ONE (09:11)
[2024-04-01] MEDS ORDERED: GLYCOPYRROLATE 0.2 MG/ML 5 ML VIAL ONE (09:11)
[2024-04-01] MEDS ORDERED: SUCCINYLCHOLINE CHLORIDE 20 MG/ML 10 ML VIAL ONE (09:11)
[2024-04-01] MEDS ORDERED: ONDANSETRON 4MG INJ ONE (09:11)
[2024-04-01] MEDS ORDERED: LIDOCAINE PF 100MG/5ML (2%) SYRINGE 5ML ONE (09:11)
[2024-04-01] MEDS ORDERED: DEXAMETHASONE SOD PHOSPHATE 10MG/ML 1ML VIAL ONE (09:11)
[2024-04-01] MEDS ORDERED: ROCURONIUM BROMIDE 10MG/1ML 5ML VL ONE ×2 (09:12→10:42)
[2024-04-01] MEDS ORDERED: FENTANYL CITRATE PF 50 MCG/1 ML 5ML AMP IV ONE (09:13)
[2024-04-01] MEDS ORDERED: DEXAMETHASONE SOD PHOSPHATE 4 MG/ML 1ML VIAL ONE (09:14)
[2024-04-01] MEDS ORDERED: BUPIVACAINE/PF 0.5% 30ML VIAL ONE (09:26)
[2024-04-01] MEDS: CEFAZOLIN SODIUM 2 GM VIAL IVPB ONE (09:40)
[2024-04-01] MEDS ORDERED: EPHEDRINE SULFATE 50 MG/ML AMPULE ONE (09:52)
[2024-04-01] MEDS: 0.9%NACL 1000ML 1,000 ML IV ONE (10:04)
[2024-04-01] MEDS: CEFAZOLIN SODIUM 2 GM VIAL ONE (10:05)
[2024-04-01] MEDS ORDERED: SUGAMMADEX SODIUM 200 MG/2 ML VIAL IV ONE (10:47)
[2024-04-01] MEDS ORDERED: SIME80TA12 PO (12:13)
[2024-04-01] MEDS ORDERED: DOCU-116 PO (12:15)
[2024-04-01] MEDS ORDERED: IBUP-2077 PO (12:15)
[2024-04-01] MEDS ORDERED: TRAM50TA4 PO (12:16)
[2024-04-01] MEDS ORDERED: SULF1TAB42 PO (12:16)
== END 2024-04-01 12:55 | disposition home or self-care (01) ==
LOC: DAH 06:55
PROVIDERS: ATTEND Student in an Organized Health Care Education/Training Program
DX: K42.9 Umbilical hernia without obstruction or gangrene (principal); K43.9 Ventral hernia without obstruction or gangrene; E11.9 Type 2 diabetes mellitus without complications; Z90.49 Acquired absence of other specified parts of digestive tract; Z79.899 Other long term (current) drug therapy
CPT/HCPCS: 80048; 85025; 87086 ×2; 87186; 81001; 36415; 93005 ×2; 49593; 82948 ×2; A6260; J1100 ×2; A4600; A4663; J7030 ×2; C1781; J3010; J0330; J3490 ×4; J2001; J2250; J2704; J2405; J0665 ×2; J0690 ×2; G0168; A4215; A4223; A4222; A4221